=== PATIENT | female | born 1985 | race Caucasian/White ===

== ENCOUNTER 2018-02-10 13:00 | Emergency (ER) | payer MEDICAID ==
[~2018-02-10] VITALS: Ht 157.5 cm; Wt 73.4 kg
[~2018-02-10 13:00] MED LIST: COM10T PO; DIL100C PO; LEVA15HF4 IH; PHEN100C4 PO; PRED20TA PO; TEG100T PO; ZOF4T PO
[2018-02-10] MEDS ORDERED: LORazepam 2 mg/ml vial IV ONE (13:15)
[2018-02-10] MEDS ORDERED: normal saline 1000ML IV soln IVB ONE (13:15)
[2018-02-10 13:36] LABS: BASOPHILS # (AUTO) 0.1 X10'3 (0-0.2); BASOPHILS % (AUTO) 0.8 % (0-1); EOSINOPHILS # (AUTO) 0.2 X10'3 (0-0.9); EOSINOPHILS % (AUTO) 1.5 % (0-6); HEMATOCRIT 37.3 % (35.0-45.0); HEMOGLOBIN 12.5 g/dl (12.0-16.0); LYMPHOCYTES # (AUTO) 2.2 X10'3 (1.1-4.8); LYMPHOCYTES % (AUTO) 21.3 % (21-51); MEAN CORPUSCULAR HEMOGLOBIN 29.8 PG (27.0-31.0); MEAN CORPUSCULAR HGB CONC 33.5 % (33.0-36.5); MEAN CORPUSCULAR VOLUME 88.8 FL (78-98); MEAN PLATELET VOLUME 7.7 FL (7.4-10.4); MONOCYTES # (AUTO) 0.6 X10'3 (0-0.9); NEUTROPHILS # (AUTO) 7.3 X10'3 (1.8-7.7); NEUTROPHILS % (AUTO) 70.4 % (42-75); PLATELET COUNT 391 X10'3 (140-440); RED CELL DISTRIBUTION WIDTH 13.5 % (11.5-14.5); WHITE BLOOD COUNT 10.4 X10'3 (4.5-11.0)
[2018-02-10 13:54] LABS: ALANINE AMINOTRANSFERASE 21 U/L (12-78); ALBUMIN 3.8 G/DL (3.4-5.0); ALBUMIN/GLOBULIN RATIO 1.2 (1.1-1.5); ALKALINE PHOSPHATASE 144 IU/L (46-116); ANION GAP 8 (8-16); ASPARTATE AMINO TRANSFERASE 15 U/L (10-37); BILIRUBIN,TOTAL 0.2 MG/DL (0.1-1.0); BLOOD UREA NITROGEN 7 MG/DL (7-18); BUN/CREATININE RATIO 10.3 (6.6-38.0); CALCIUM 8.5 MG/DL (8.5-10.1); CHLORIDE 101 MMOL/L (99-107); CREATININE 0.68 MG/DL (0.40-0.90); GLUCOSE 89 MG/DL (70-104); POTASSIUM 3.9 MMOL/L (3.5-5.1); SODIUM 135 MMOL/L (135-145); TOTAL CARBON DIOXIDE 26.3 MMOL/L (24-32); eGFR > 90 ML/MIN
[2018-02-10 14:00] LABS: CARBAMAZEPINE (TEGRETOL) 6.4 UG/ML (4.0-12.0)
[2018-02-10 14:01] LABS: PHENYTOIN (DILANTIN) 30.9 UG/ML (10.0-20.0)
[2018-02-10 15:04] LABS: CLARITY,URINE SLIGHTLY CLOUDY (Clear); COLOR,URINE YELLOW (Yellow); GLUCOSE, URINE NEGATIVE (Neg); KETONES,URINE NEGATIVE (Neg); LEUKOCYTE ESTERASE ,URINE NEGATIVE (Neg); NITRITES, URINE NEGATIVE (Neg); OCCULT BLOOD,URINE NEGATIVE (Neg); PROTEIN,URINE NEGATIVE (Neg); UROBILINOGEN,URINE 0.2 E.U/dL (0.2-1.0)
[2018-02-10 15:05] LABS: URINE HCG NEGATIVE (NEG)
[2018-02-10 15:11] LABS: UA COLLECTION TYPE CLN CATCH MIDSTREAM
[2018-02-10 15:14] LABS: MUCUS STRANDS NONE SEEN /LPF (Neg); SQUAMOUS EPITHELIAL CELL,UR MANY /LPF (FEW)
[2018-02-10 15:15] LABS: BACTERIA,URINE 1+ /HPF (Neg); RBC,URINE 0-2 /HPF (0-2); WBC,URINE 0-4 /HPF (0-4)
[2018-02-10 16:23] VITALS: BP 139/65
== END 2018-02-10 16:28 | disposition home or self-care (01) ==
LOC: ER 13:01
DX: G40.909 Epilepsy, unspecified, not intractable, without status epilepticus (principal); R79.89 Other specified abnormal findings of blood chemistry; F12.90 Cannabis use, unspecified, uncomplicated; Z79.899 Other long term (current) drug therapy
CPT/HCPCS: 36415; 70450; 80053; 80156; 80185; 81001; 81025; 82948; 85025; 93005; 96374; 99285; J2060

== ENCOUNTER 2018-11-07 15:43 | Emergency (ER) | payer MEDICAID ==
[~2018-11-07] VITALS: Ht 157.5 cm; Wt 73.6 kg
[2018-11-07] MEDS ORDERED: LORazepam 1 MG tablet PO PRN (16:50)
[2018-11-07] MEDS ORDERED: PHEN100C4 PO (17:02)
[2018-11-07] MEDS ORDERED: OMEP40CA37 PO (17:07)
[2018-11-07] MEDS ORDERED: LORA1TAB PO (17:07)
[2018-11-07] MEDS ORDERED: CETI-102 PO (17:07)
[2018-11-07 17:24] LABS: BASOPHILS # (AUTO) 0.1 X10'3 (0-0.2); BASOPHILS % (AUTO) 0.8 % (0-1); EOSINOPHILS # (AUTO) 0.1 X10'3 (0-0.9); EOSINOPHILS % (AUTO) 1.1 % (0-6); HEMATOCRIT 36.2 % (35.0-45.0); HEMOGLOBIN 12.2 g/dl (12.0-16.0); LYMPHOCYTES # (AUTO) 2.5 X10'3 (1.1-4.8); LYMPHOCYTES % (AUTO) 21.6 % (21-51); MEAN CORPUSCULAR HEMOGLOBIN 29.5 PG (27.0-31.0); MEAN CORPUSCULAR HGB CONC 33.6 g/dL (33.0-36.5); MEAN CORPUSCULAR VOLUME 87.8 FL (78-98); MEAN PLATELET VOLUME 8.1 FL (7.4-10.4); MONOCYTES # (AUTO) 0.6 X10'3 (0-0.9); MONOCYTES % (AUTO) 5.7 % (2-12); NEUTROPHILS # (AUTO) 8.1 X10'3 (1.8-7.7); NEUTROPHILS % (AUTO) 70.8 % (42-75); PLATELET COUNT 415 X10'3 (140-440); RED BLOOD COUNT 4.13 X10'6 (4.20-5.60); RED CELL DISTRIBUTION WIDTH 13.3 % (11.5-14.5); WHITE BLOOD COUNT 11.4 X10'3 (4.5-11.0)
--- NOTE | 2018-11-07 17:36 | NUR ---
Admission note: Pt admitted to ER overflow at 1615. Pt came directly back from Triage for increased anxiety and vague S.I.
[2018-11-07 17:40] LABS: ALANINE AMINOTRANSFERASE 22 U/L (12-78); ALBUMIN 3.7 G/DL (3.4-5.0); ALBUMIN/GLOBULIN RATIO 1.1 (1.1-1.5); ALKALINE PHOSPHATASE 177 IU/L (46-116); ANION GAP 9 (8-16); ASPARTATE AMINO TRANSFERASE 17 U/L (10-37); BILIRUBIN,TOTAL 0.2 MG/DL (0.1-1.0); BLOOD UREA NITROGEN 10 MG/DL (7-18); BUN/CREATININE RATIO 14.7 (6.6-38.0); CHLORIDE 103 MMOL/L (99-107); CREATININE 0.68 MG/DL (0.40-0.90); GLUCOSE 92 MG/DL (70-104); POTASSIUM 3.6 MMOL/L (3.5-5.1); SODIUM 138 MMOL/L (135-145); TOTAL CARBON DIOXIDE 26.5 MMOL/L (24-32); TOTAL PROTEIN 7.1 G/DL (6.4-8.2); eGFR > 90 ML/MIN
[2018-11-07 17:47] LABS: ETHANOL < 0.010 GM/DL (0.0-0.010)
--- NOTE | 2018-11-07 17:58 | NUR ---
Pt upset r/t another pt yelling and screaming and attempting AWOL. Pt calmed quickly with 1:1 processing with staff.
--- NOTE | 2018-11-07 18:35 | NUR ---
Pt affirms increased S/I without a plan or timeframe saying "I've been thinking more and more about hurting myself. I have a problem with self worth. I don't have a purpose in my life. My mother was diagnosed bipolar last year, like me, except I was diagnosed when I was 17. She's suppose to be taking care of me, but instead, I'm having to take care of her. Last week [employer] told me I didn't have enough seizures to qualify for benefits. Now I don't have any money. I don't seem to fit into what society wants." When asked what she meant by that pt responded, "Well, I would love just love to go to school all the time and keep learning, but you can't get money to go to school without a goal, like a certain degree. I don't want a degree. I just want to go to school." Pt reports that she is currently "overwhelmed by things in my life." Pt denies audio/visual hallucinations at this time. Mood is WNL; no signs of hypomania or depression noted at this time. She engages readily with staff and maintaings good eye contact.
[2018-11-07 19:52] LABS: CLARITY,URINE CLEAR (Clear); COLOR,URINE YELLOW (Yellow); GLUCOSE, URINE NEGATIVE (Neg); KETONES,URINE NEGATIVE (Neg); LEUKOCYTE ESTERASE ,URINE NEGATIVE (Neg); NITRITES, URINE NEGATIVE (Neg); OCCULT BLOOD,URINE NEGATIVE (Neg); PROTEIN,URINE NEGATIVE (Neg); UROBILINOGEN,URINE 0.2 E.U/dL (0.2-1.0)
[2018-11-07 19:53] LABS: UA COLLECTION TYPE CLN CATCH MIDSTREAM
[2018-11-07 19:54] LABS: URINE HCG NEGATIVE (NEG)
[2018-11-07 19:57] LABS: URINE AMPHETAMINE SCREEN NEGATIVE (Neg); URINE BARBITUATE SCREEN NEGATIVE (Neg); URINE BENZODIAZEPINES SCREEN NEGATIVE (Neg); URINE CANNABINOID SCREEN POSITIVE (Neg); URINE COCAINE SCREEN NEGATIVE (Neg); URINE METHADONE SCREEN NEGATIVE (Neg); URINE OPIATE SCREEN NEGATIVE (Neg); URINE PHENCYCLIDINE SCREEN NEGATIVE (Neg)
[2018-11-07] MEDS: carBAMazepine 100mg chewable tablet PO SCH (20:25)
[2018-11-07] MEDS ORDERED: phenytoin sod ER 100mg capsule PO SCH (21:00)
--- NOTE | 2018-11-07 21:18 | NUR ---
Packet sent to [facility]. Confirmed receipt of packet with Elena Govea [place] office.
[2018-11-07] MEDS ORDERED: ondansetron 4mg rapidly disintigrating tab PO ONE (21:30)
--- NOTE | 2018-11-07 21:31 | NUR ---
Discussed pt's active emesis w/ Dr Butterfield; new order received for Zofran ODT.
[2018-11-07] MEDS ORDERED: LORazepam 1 MG tablet PO ONE (21:40)
[2018-11-08 05:30] VITALS: BP 107/63
[2018-11-08] MEDS ORDERED: pantoprazole 40mg Tablet.DR PO SCH (07:30)
[2018-11-08] MEDS ORDERED: LORazepam 1 MG tablet PO SCH ×3 (08:00→20:00)
[2018-11-08] MEDS ORDERED: phenytoin sod ER 100mg capsule PO SCH (08:00)
[2018-11-08] MEDS ORDERED: cetirizine 10mg tablet PO SCH (08:00)
[2018-11-08] MEDS ORDERED: LORazepam 1 MG tablet PO ONE (08:15)
[2018-11-08] MEDS: carBAMazepine 100mg chewable tablet PO SCH (08:31)
== END 2018-11-08 10:23 | disposition home or self-care (01) ==
LOC: ER 15:44
DX: R45.851 Suicidal ideations (principal); F31.9 Bipolar disorder, unspecified; F12.90 Cannabis use, unspecified, uncomplicated; Z79.899 Other long term (current) drug therapy
CPT/HCPCS: 36415; 80053; 80305; 80320; 81003; 81025; 84443; 85025; 99284

== ENCOUNTER 2019-03-12 07:52 | Day surgery (SDC) | payer MEDICAID ==
[2019-03-09 14:26] LABS: BASOPHILS % (AUTO) 0.4 % (0-1); EOSINOPHILS # (AUTO) 0.1 X10'3 (0-0.9); EOSINOPHILS % (AUTO) 1.1 % (0-6); LYMPHOCYTES # (AUTO) 1.9 X10'3 (1.1-4.8); LYMPHOCYTES % (AUTO) 23.5 % (21-51); MEAN CORPUSCULAR HEMOGLOBIN 30.2 PG (27.0-31.0); MEAN CORPUSCULAR HGB CONC 34.1 g/dL (33.0-36.5); MEAN CORPUSCULAR VOLUME 88.6 FL (78-98); MEAN PLATELET VOLUME 7.7 FL (7.4-10.4); MONOCYTES # (AUTO) 0.5 X10'3 (0-0.9); MONOCYTES % (AUTO) 6.7 % (2-12); NEUTROPHILS # (AUTO) 5.5 X10'3 (1.8-7.7); NEUTROPHILS % (AUTO) 68.3 % (42-75); PRE OP HEMATOCRIT 36.7 % (35.0-45.0); PRE OP HEMOGLOBIN 12.5 g/dL (12.0-16.0); PRE OP PLATELET COUNT 412 X10'3 (140-440); RED BLOOD COUNT 4.14 X10'6 (4.20-5.60); RED CELL DISTRIBUTION WIDTH 13.6 % (11.5-14.5)
[2019-03-09 14:32] LABS: CLARITY,URINE SLIGHTLY CLOUDY (Clear); COLOR,URINE YELLOW (Yellow); GLUCOSE, URINE NEGATIVE (Neg); KETONES,URINE NEGATIVE (Neg); LEUKOCYTE ESTERASE ,URINE NEGATIVE (Neg); NITRITES, URINE NEGATIVE (Neg); OCCULT BLOOD,URINE LARGE (Neg); PROTEIN,URINE NEGATIVE (Neg)
[2019-03-09 14:33] LABS: UA COLLECTION TYPE CLN CATCH MIDSTREAM
[2019-03-09 14:38] LABS: PRE OP PROTIME 10.3 SECONDS (9.0-12.0)
[2019-03-09 14:39] LABS: AMORPHOUS PHOSPHATES 2+; BACTERIA,URINE NONE SEEN /HPF (Neg); RBC,URINE 0-2 /HPF (0-2); SQUAMOUS EPITHELIAL CELL,UR FEW /LPF (FEW)
[2019-03-09 14:40] LABS: MUCUS STRANDS FEW /LPF (Neg); WBC,URINE 0-4 /HPF (0-4)
[2019-03-09 14:41] LABS: ALBUMIN 3.7 G/DL (3.4-5.0); CALCIUM 8.8 MG/DL (8.5-10.1); CHLORIDE 107 MMOL/L (99-107); CREATININE 0.62 MG/DL (0.40-0.90); PRE OP ANION GAP 6 (8-16); PRE OP BILIRUB, TOTAL 0.2 MG/DL (0.0-1.0); PRE OP GLUCOSE 94 MG/DL (70-104); PRE OP POTASSIUM 3.9 MMOL/L (3.4-5.1); PRE OP SODIUM 142 MMOL/L (135-145); TOTAL CARBON DIOXIDE 29.2 MMOL/L (24-32); TOTAL PROTEIN 7.1 G/DL (6.4-8.2); eGFR > 90 ML/MIN
[2019-03-09 14:42] LABS: ALBUMIN/GLOBULIN RATIO 1.1 (1.1-1.5); ALKALINE PHOSPHATASE 152 IU/L (46-116); PRE OP ALT 23 U/L (30-65); PRE OP AST 16 U/L (10-37)
[2019-03-09 14:51] LABS: BLOOD UREA NITROGEN 10 MG/DL (7-18); BUN/CREATININE RATIO 16.1 (6.6-38.0)
[2019-03-09 15:07] LABS: HCG SERUM QL NEGATIVE
[2019-03-12] VITALS (8 sets, daily range): BP systolic 106–136; BP diastolic 64–84
[~2019-03-12] VITALS: Ht 157.5 cm; Wt 70.8 kg
[~2019-03-12 07:52] MED LIST changes: +ATOR40TA PO; +CARB200T PO; +CETI-102 PO; -COM10T PO; -DIL100C PO; +DIVA-76 PO; +IBUP-1984 PO; -LEVA15HF4 IH; +LORA1TAB PO; +OMEP40CA13 PO; -PRED20TA PO; -TEG100T PO; -ZOF4T PO
[2019-03-12] MEDS ORDERED: famotidine 20mg tablet PO ONE (08:00)
[2019-03-12] MEDS ORDERED: cefazolin/dext.iso 2gm/50ml 50 ML IV ONE (08:00)
[2019-03-12] MEDS ORDERED: ringers solution, lacted 1,000 ML IV SCH ×2 (08:00→08:30)
[2019-03-12] MEDS ORDERED: fentaNYL/PF 50MCG/1 ML 2ML syringe IV PRN (08:30)
[2019-03-12] MEDS ORDERED: ondansetron/PF 4mg/2ml inj IV PRN (08:30)
[2019-03-12] MEDS ORDERED: morphine 4 MG/ML inj SYRINge IV PRN ×2 (08:30)
[2019-03-12] MEDS ORDERED: BUPIVAcaine/PF 2.5 mg/ml (0.25%) 30ml vial ONE (09:19)
[2019-03-12] MEDS ORDERED: sevoflurane 250ml liquid IH ONE (10:20)
[2019-03-12] MEDS ORDERED: fentaNYL/PF 50MCG/1 ML 2ML syringe ONE (10:20)
[2019-03-12] MEDS ORDERED: midazolam 2 mg/2 ml injection ONE (10:20)
[2019-03-12] MEDS ORDERED: neostigmine methylsulfate 1 MG/ML 10ml vial ONE (10:20)
[2019-03-12] MEDS ORDERED: ondansetron/PF 4mg/2ml inj ONE (10:21)
[2019-03-12] MEDS ORDERED: propofol inj 20 ML IV ONE (10:21)
[2019-03-12] MEDS ORDERED: rocuronium 10mg/ml inj IV ONE (10:21)
[2019-03-12] MEDS ORDERED: LIDOcaine 2% (20mg/ml) 5ml vial ONE (10:21)
[2019-03-12] MEDS ORDERED: dexamethasone sod phosphate 4mg/ml inj. ONE (10:35)
[2019-03-12] MEDS ORDERED: glycopyrrolate 0.2mg/ml inj ONE (11:28)
--- NOTE | 2019-03-12 11:55 | NUR ---
ADMITTED TO PACU FROM OR ACCOMPANIED BY ANESTHESIA. INTIAL PHYSICAL ASSESSMENT DONE AND RECORDED. AWAKE AND RESPONSE ON ARRIVE YO PACU, REPORT RECEIVED FROM ANESTHESIA.
[2019-03-12] MEDS: fentaNYL/PF 50MCG/1 ML 2ML syringe IV PRN ×2 (12:14→12:22)
[2019-03-12] MEDS ORDERED: HYDROcodone/acetaminophen 10/325mg tab PO ONE (12:45)
--- NOTE | 2019-03-12 13:15 | NUR ---
Discharge criteria met, discharge instructions given, demonstrates verbal understanding. Discharged home in good condition. Medicated with [place] prior to discharge.
== END 2019-03-12 13:15 | disposition home or self-care (01) ==
LOC: PAS 07:52
PROVIDERS: ATTEND Obstetrics & Gynecology Obstetrics
DX: Z30.2 Encounter for sterilization (principal); N73.6 Female pelvic peritoneal adhesions (postinfective); F31.9 Bipolar disorder, unspecified; Z87.891 Personal history of nicotine dependence; G40.409 Other generalized epilepsy and epileptic syndromes, not intractable, without status epilepticus; E66.9 Obesity, unspecified; Z68.25 Body mass index [BMI] 25.0-25.9, adult; F41.9 Anxiety disorder, unspecified; G43.909 Migraine, unspecified, not intractable, without status migrainosus; Z83.3 Family history of diabetes mellitus; Z79.899 Other long term (current) drug therapy; Z79.01 Long term (current) use of anticoagulants
CPT/HCPCS: 36415; 58671; 80053; 81001; 82948; 84703; 85025; 85610; 85730; 86885; 86900; 86901; A4264; J1100; J2001; J2250; J2405; J2704; J2710; J3010; J3490; A4618; A7000; J7120

== ENCOUNTER 2019-03-26 19:20 | Emergency (ER) | payer MEDICAID ==
[~2019-03-26] VITALS: Ht 157.5 cm; Wt 68.2 kg
[2019-03-26 22:33] LABS: CLARITY,URINE CLEAR (Clear); COLOR,URINE YELLOW (Yellow); GLUCOSE, URINE NEGATIVE (Neg); KETONES,URINE NEGATIVE (Neg); LEUKOCYTE ESTERASE ,URINE TRACE (Neg); NITRITES, URINE NEGATIVE (Neg); OCCULT BLOOD,URINE NEGATIVE (Neg); PROTEIN,URINE NEGATIVE (Neg); UA COLLECTION TYPE CLN CATCH MIDSTREAM; UROBILINOGEN,URINE 0.2 E.U/dL (0.2-1.0)
[2019-03-26 22:34] LABS: URINE HCG NEGATIVE (NEG)
[2019-03-26 22:39] LABS: BACTERIA,URINE FEW /HPF (Neg); MUCUS STRANDS NONE SEEN /LPF (Neg); RBC,URINE NONE SEEN /HPF (0-2); SQUAMOUS EPITHELIAL CELL,UR FEW /LPF (FEW); WBC,URINE 0-4 /HPF (0-4)
[2019-03-26] MEDS ORDERED: DOXYCYCLINE 100MG CAPSULE PO STA (22:52)
[2019-03-26] MEDS ORDERED: DOXY100C2 PO (22:54)
[2019-03-26 23:07] VITALS: BP 122/67
== END 2019-03-26 23:10 | disposition home or self-care (01) ==
LOC: ER 19:20
DX: L03.316 Cellulitis of umbilicus (principal); R30.0 Dysuria; F31.9 Bipolar disorder, unspecified; F12.90 Cannabis use, unspecified, uncomplicated; Z98.51 Tubal ligation status; Z79.899 Other long term (current) drug therapy
CPT/HCPCS: 81001; 81025; 87077; 87088; 87186; 99283

== ENCOUNTER 2020-08-24 11:30 | Emergency (ER) | payer MEDICARE, MEDICAID ==
[~2020-08-24] VITALS: Ht 157.5 cm; Wt 74.3 kg
[~2020-08-24 11:30] MED LIST changes: -CETI-102 PO; +CETI-90 PO
[2020-08-24 11:50] VITALS: BP 142/87
[2020-08-24] MEDS ORDERED: LIDOcaine Viscous 15ml cup MM STA (12:57)
[2020-08-24] MEDS ORDERED: penicillin V potassium 500mg tablet PO ONE (13:50)
[2020-08-24] MEDS ORDERED: PENI500T2 PO (13:52)
[2020-08-24] MEDS ORDERED: HYDROcodone/acetaminophen 5mg/325mg tablet PO ONE (14:05)
== END 2020-08-24 14:15 | disposition home or self-care (01) ==
LOC: ER 11:31
DX: K04.7 Periapical abscess without sinus (principal); F31.9 Bipolar disorder, unspecified; F12.90 Cannabis use, unspecified, uncomplicated; Z79.2 Long term (current) use of antibiotics; Z86.69 Personal history of other diseases of the nervous system and sense organs; Z98.51 Tubal ligation status; Z79.899 Other long term (current) drug therapy
CPT/HCPCS: 41800; 99284

== ENCOUNTER 2021-02-02 17:22 | Emergency (ER) | payer MEDICARE, MEDICAID ==
[~2021-02-02] VITALS: Ht 160 cm; Wt 75.0 kg
[~2021-02-02 17:22] MED LIST changes: -OMEP40CA13 PO; +OMEP40CA21 PO
[2021-02-02 17:49] VITALS: BP 153/87
== END 2021-02-02 21:19 | disposition left against medical advice (07) ==
LOC: ER 17:22
DX: H92.01 Otalgia, right ear (principal); Z53.21 Procedure and treatment not carried out due to patient leaving prior to being seen by health care provider

== ENCOUNTER 2022-06-06 17:41 | Emergency (ER) | payer MEDICARE, MEDICAID | END 2022-06-06 18:36 | disposition left against medical advice (07) | LOC: ER 17:42 | DX: Z00.8 Encounter for other general examination (principal); Z53.21 Procedure and treatment not carried out due to patient leaving prior to being seen by health care provider ==

== ENCOUNTER 2023-09-10 15:16 | Emergency (ER) | payer MEDICARE, MEDICAID ==
[~2023-09-10] VITALS: Ht 157.5 cm; Wt 72.0 kg
[2023-09-10 16:42] LABS: BASOPHILS % (AUTO) 0.4 % (0-1); EOSINOPHILS # (AUTO) 0.1 X10'3 (0-0.9); HEMATOCRIT 33.8 % (35.0-45.0); HEMOGLOBIN 11.2 g/dl (12.0-16.0); LYMPHOCYTES # (AUTO) 1.8 X10'3 (1.1-4.8); LYMPHOCYTES % (AUTO) 18.8 % (21-51); MEAN CORPUSCULAR HEMOGLOBIN 27.6 PG (27.0-31.0); MEAN CORPUSCULAR HGB CONC 33.2 g/dL (33.0-36.5); MEAN CORPUSCULAR VOLUME 83.1 FL (78-98); MEAN PLATELET VOLUME 7.2 FL (7.4-10.4); MONOCYTES # (AUTO) 0.4 X10'3 (0-0.9); MONOCYTES % (AUTO) 4.7 % (2-12); NEUTROPHILS # (AUTO) 7.2 X10'3 (1.8-7.7); NEUTROPHILS % (AUTO) 75.1 % (42-75); PLATELET COUNT 499 X10'3 (140-440); RED BLOOD COUNT 4.07 X10'6 (4.20-5.60); RED CELL DISTRIBUTION WIDTH 16.3 % (11.5-14.5); WHITE BLOOD COUNT 9.5 X10'3 (4.5-11.0)
[2023-09-10] MEDS ORDERED: ketorolac trometh inj. 60 MG/2 ML VIAL IM ONE (16:45)
[2023-09-10 17:19] LABS: ALBUMIN 3.3 G/DL (3.4-5.0); ANION GAP 5 (8-16); BLOOD UREA NITROGEN 10 MG/DL (7-18); BUN/CREATININE RATIO 14.7 (10.0-20.0); CALCIUM 8.2 MG/DL (8.5-10.1); CHLORIDE 101 MMOL/L (99-107); CREATININE 0.68 MG/DL (0.40-0.90); ETHANOL < 10 MG/DL (<10); GLUCOSE 91 MG/DL (70-104); POTASSIUM 3.8 MMOL/L (3.5-5.1); SODIUM 137 MMOL/L (135-145); THYROID STIMULATING HORMONE 0.89 ulU/ml (0.34-4.50); TOTAL CARBON DIOXIDE 31.3 MMOL/L (24-32); eCRCL 90 ML/MIN; eGFR > 90 ML/MIN
[2023-09-10] MEDS: LORazepam 1 MG tablet PO ONE (17:19)
[2023-09-10] MEDS: diphenhydrAMINE 50 mg/ml inj IM ONE (17:19)
[2023-09-10] MEDS: ketorolac tromethamine 15mg/ml inj. IM ONE (17:51)
[2023-09-10 18:25] LABS: BILIRUBIN,URINE NEGATIVE (Neg); CLARITY,URINE CLEAR (Clear); COLOR,URINE YELLOW (Yellow); GLUCOSE, URINE NEGATIVE (Neg); KETONES,URINE NEGATIVE (Neg); LEUKOCYTE ESTERASE ,URINE NEGATIVE (Neg); NITRITES, URINE NEGATIVE (Neg); OCCULT BLOOD,URINE NEGATIVE (Neg); PROTEIN,URINE NEGATIVE (Neg); URINE HCG NEGATIVE (NEG); UROBILINOGEN,URINE 0.2 E.U/dL (0.2-1.0)
[2023-09-10 18:30] LABS: UA COLLECTION TYPE VOIDED
[2023-09-10 18:50] LABS: URINE AMPHETAMINE SCREEN NEGATIVE (Neg); URINE BARBITUATE SCREEN NEGATIVE (Neg); URINE BENZODIAZEPINES SCREEN NEGATIVE (Neg); URINE CANNABINOID SCREEN POSITIVE (Neg); URINE COCAINE SCREEN NEGATIVE (Neg); URINE METHADONE SCREEN NEGATIVE (Neg); URINE PHENCYCLIDINE SCREEN NEGATIVE (Neg)
[2023-09-10 19:09] LABS: URINE OPIATE SCREEN NEGATIVE (Neg)
[2023-09-10] MEDS: carBAMazepine Ext. Release 200 MG TAB.ER.12H PO SCH (19:36)
[2023-09-10] MEDS: LORazepam 1 MG tablet PO SCH (19:36)
[2023-09-10] MEDS: calcium carbonate 500mg chew tablet PO ONE (19:51)
[2023-09-10] MEDS: ondansetron 4mg rapidly disintigrating tab PO ONE (22:08)
[2023-09-10] MEDS: OLANZapine 5mg rapidly disint. tablet PO ONE (23:47)
[2023-09-11] MEDS: pantoprazole 40mg Tablet.DR PO SCH (09:02)
[2023-09-12 17:41] VITALS: BP 130/72; PULSE 73; RESP 16; TEMP 98.6; O2SAT 100
== END 2023-09-12 19:30 ==
LOC: ER 15:17
DX: R45.851 Suicidal ideations (principal); Z20.822 Contact with and (suspected) exposure to COVID-19; R45.850 Homicidal ideations; F31.89 Other bipolar disorder; Z79.899 Other long term (current) drug therapy; Z98.51 Tubal ligation status
CPT/HCPCS: 36415; 80048; 80305; 80320; 81003; 81025; 84443; 85025; 87811; 96372; 99291; J1885